=== PATIENT | female | born 1940 | race Caucasian/White ===

== ENCOUNTER 2016-09-24 12:42 | Observation (INO) | payer MEDICARE ==
--- NOTE | ~2016-09-24 | HP ---
History And Physical [address] [place]. [address] NAME: RAVEN MEYER : 44 STATUS : ADM Bam PAT#: [id number] AGE: 76 ADM/REG DATE : 09/24/16 MR#: [id number] REPORT SERV DATE: 09/25/16 DICTATED BY: ASHLEY BEAR DATE: 09/25/16 REPORT STATUS : Draft TRANSCRIBED BY: LIZANDRO DATE: 09/25/16 DATE OF ADMISSION: 09/24/2016 NEUROLOGIST: Jose De Jesus Keith M.D. CHIEF COMPLAINT: Chest pain. HISTORY OF PRESENT ILLNESS: This is a pleasant 76-year-old white female with no cardiac history with cardiac risk factor of hyperlipidemia and age. 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 She presented to the emergency room yesterday for an episode of dyspnea with walking to the bathroom and precordial chest pain. This occurred soon after awakening at 9 o'clock and then walking to the bathroom approximately 0915 hours. The chest pain and dyspnea lasted approximately 40 minutes. This occurred after a sleepless night secondary to loud neighbors. Subsequently, she had one minute of chest pain at approximately 6 o'clock this morning with no associated symptoms. Otherwise, no symptoms of chest pain or any other associated symptoms in several years since last [facility] workup in 2014. She did have associated "coldness feeling to her body and felt slightly lightheaded." This resolved. Of note, the patient is undergoing an evaluation with Dr. Avila for weight loss of an undetermined etiology, and she has a subsequent followup appointment in several weeks. PAST MEDICAL HISTORY: 1. Hyperlipidemia. 2. Parkinson's. 3. Left breast carcinoma in situ. 4. Right hip fracture from fall. 5. Frequent falls. 6. GERD. 7. UTI secondary to Klebsiella. 8. Scoliosis. 9. Arthritis. 10.Herpes in 2008. 11.Depression. 12.Anxiety. 13.Arthritis. 14.Neuropathic pain. 15.Frequent falls. PAST SURGICAL HISTORY: 1. Right hip ORIF in 10/2015. 2. Tonsillectomy, one year old. 3. Tubal ligation. 4. Mole excision on 10/04. 5. Appendectomy. 6. Left fracture of hip with surgery in 10/2015. History And Physical [address] [place]. [address] NAME: RAVEN MEYER : 44 STATUS : ADM Bam PAT#: [id number] AGE: 76 ADM/REG DATE : 09/24/16 MR#: [id number] REPORT SERV DATE: 09/25/16 DICTATED BY: ASHLEY BEAR DATE: 09/25/16 REPORT STATUS : Draft TRANSCRIBED BY: LIZANDRO DATE: 09/25/16 7. Two negative cath/arteriograms approximately 12 years ago. SOCIAL HISTORY: , with caregiver secondary to Parkinson's. She lives with her daughter. She is a retired nurse. She denies any tobacco, alcohol, or illicit drug use. She has no formal exercise program secondary to Parkinson's and requires wheelchair outside of the home and walks slowly around a one-story home with a walker for assistance. FAMILY HISTORY: Noncontributory for CAD. REVIEW OF SYSTEMS: Last stress test on 07/12/2013, this was a vasodilator stress test with no ischemia. LVEF greater than 60%. This was considered to be low-risk stress test. As above per HPI, all other systems reviewed and negative. ALLERGIES: 1. OXYCODONE, REACTION RASH AND HALLUCINATION. 2. CODEINE, OUT OF MIND AND MEMORY LOSS ISSUES. 3. TRIMETHOPRIM, RASH. 4. CIPROFLOXACIN, RASH. MEDICATIONS: Home medication list reviewed and is as follows, 1. Acyclovir 400 mg p.o. twice per day. 2. Aspirin 81 mg p.o. daily. 3. Stalevo 150 mg tab p.o. q.8 hours. 4. Vitamin B12 at 1000 mcg p.o. daily. 5. Vitamin D 6000 units p.o. daily. 6. Colace 100 mg p.o. daily. 7. Cymbalta 30 mg p.o. daily. 8. Gabapentin 800 mg p.o. three times per day. 9. Multivitamins one tablet p.o. daily. 10.Nexium 40 mg p.o. daily. 11.Neupro 8 mg/24-hour patch, apply topically daily. 12.Klonopin 0.5 mg p.o. at bedtime. 13.Terrell 7.5/325 mg one tablet p.o. daily p.r.n. pain. 14.Nuplazid 34 mg p.o. daily. PHYSICAL EXAMINATION: VITAL SIGNS: Oxygen saturation 96% on room air, weight 54.43 kg, temperature 98.1, pulse 75, respiratory rate 18, blood pressure 128/61 and as high as 152/70. GENERAL: Well developed, well nourished. In no apparent distress. HEENT: Head normocephalic. No xanthelasma. Sclera clear, anicteric. Moist mucous membranes without pallor. No lymphadenopathy. No deficits noted. NECK: Trachea midline. Supple. No thyromegaly, JVD, or bruits. RESPIRATORY: Unlabored respirations. Breath sounds clear bilaterally to posterior auscultation. No wheezes, rhonchi or crackles. CARDIOVASCULAR: Regular rate and rhythm. No murmur, rub, or gallop appreciated. No chest wall tenderness to palpation. History And Physical [address] [address] NAME: RAVEN MEYER : 44 STATUS : ADM Bam PAT#: [id number] AGE: 76 ADM/REG DATE : 09/24/16 MR#: [id number] REPORT SERV DATE: 09/25/16 DICTATED BY: ASHLEY BEAR DATE: 09/25/16 REPORT STATUS : Draft TRANSCRIBED BY: LIZANDRO DATE: 09/25/16 ABDOMEN: Soft, nontender, and nondistended. Active bowel sounds auscultated x4 quadrants. No organomegaly and no masses. No aortic bruit. EXTREMITIES: DP/PT and radial pulses 2+ bilaterally. No clubbing, cyanosis, or edema. SKIN: Warm, dry, intact. No rash. Normal turgor. MUSCULOSKELETAL: Moves all extremities in bed without difficulty. NEURO/PSYCH: Alert and oriented x3 with no acute distress. Affect appropriate to current situation. LABORATORY DATA: BMP: Sodium 144, potassium 4, creatinine 0.68, glucose 112, calcium 10.8 (was 10.9 on 09/18/2016), magnesium 2.3. CBC: White blood cell count 4.8, hemoglobin 12.8, hematocrit 38.7, platelets 162. Troponin less than 0.02 x3. Note, laboratory data from primary care provider, parathyroid hormone was checked and was normal at 64.5. TSH was normal at 0.4, free T4 was normal at 1.2. IMAGING: Chest x-ray: Clear lungs with mild diminished lung volumes. Surgical clips noted to the left chest wall that are persistent. There is a normal cardiac silhouette. EKG personally interpreted normal sinus rhythm with no ischemia, poor R-wave progression. Telemetry: Sinus rhythm. ASSESSMENT AND PLAN: 1. Precordial chest pain, three negative troponins. EKG, no acute ischemia. Cardiac risk factors include hyperlipidemia, age of 76. I will order a vasodilator stress test for risk stratification given these risk factors. She is unable to walk on a treadmill given Parkinson's. RN is to discharge the patient to home if the vasodilator stress test is low risk. She is to follow up with primary care provider in one-two weeks. 2. Parkinson disease, I will continue home medications, this is well controlled at this time. 3. Hyperlipidemia, she is a diet managed and PCP is to continue to follow. She is to continue a low-fat diet. 4. Elevated blood pressure. The patient denies hypertension. She said that she has been off blood pressure medications for over five years as she has been normotensive. She is to check her blood pressure daily, record, and bring to primary care provider in one- two weeks. 5. Reported weight loss. This is being followed by primary care provider, who is undergoing a workup at this time. I defer that to Dr. Avila. The patient will be seen down in the stress testing area by rounding grain operations manager for [employer]. ROBERTO/LIZANDRO Ashley Bear NP / [id number] CC: History And Physical [address] [address] NAME: RAVEN MEYER : 44 STATUS : ADM Bam PAT#: [id number] AGE: 76 ADM/REG DATE : 09/24/16 MR#: [id number] REPORT SERV DATE: 09/25/16 DICTATED BY: ASHLEY BEAR DATE: 09/25/16 REPORT STATUS : Draft TRANSCRIBED BY: LIZANDRO DATE: 09/25/16 JOSÉ LUIS Villavicencio M.D. David Rankine, M.D.
[2016-09-24 12:21] LABS: BASOPHILS 0.4 %; BASOPHILS ABSOLUTE 0.02 10/3/uL (0.0-0.16); EOSINOPHILS 0.8 %; EOSINOPHILS ABSOLUTE 0.04 10/3/uL (0.0-0.53); HEMATOCRIT 38.7 % (36.0-48.0); HEMOGLOBIN 12.8 g/dL (12.0-16.0); IMMATURE GRANULOCYTES 0.2 %; IMMATURE GRANULOCYTES ABSOLUTE 0.01 10/3/uL (0.0-0.11); LYMPHOCYTES 25.3 %; LYMPHOCYTES ABSOLUTE 1.21 10/3/uL (0.67-4.30); MANUAL DIFF NO %; MEAN CORPUS HGB CONC 33.1 g/dL (32.0-36.0); MEAN CORPUSCULAR HEMOGLOB 29.1 pg (26.0-34.0); MEAN PLATELET VOLUME 11.3 fL (9.2-13.0); MONOCYTES 7.7 %; MONOCYTES ABSOLUTE 0.37 10/3/uL (0.21-1.20); NEUTROPHILS 65.6 %; NEUTROPHILS ABSOLUTE 3.14 10/3/uL (2.02-8.40); PLATELET COUNT 162 10/3/uL (150-400); RBC DISTRIBUTION WIDTH 13.7 % (12.0-16.0); WHITE BLOOD CELLS 4.8 10/3/uL (4.5-10.5)
[2016-09-24 12:28] LABS: PARTIAL THROMBO TIME 27.1 SEC (22.5-37.2); PROTIME (NOT ORD) 13.3 SEC (12.0-14.5)
[2016-09-24 12:35] LABS: BUN (BLOOD UREA NITROGEN) 8 MG/DL (6-23); CALCIUM, SERUM 10.8 MG/DL (8.5-10.4); CHEST PAIN PROFILE TAT 0 Hrs 18 Mins; CHLORIDE, SERUM 106 MMOL/L (96-112); CO2 (CARBON DIOXIDE) 32 MMOL/L (24-34); CREATININE 0.68 MG/DL (0.55-1.02); GFR AFRICAN AMERICAN 100 ML/MIN (>=60); GFR NON AFRICAN AMERICAN 86 ML/MIN (>=60); SODIUM, SERUM 144 MMOL/L (135-148); TROPONIN I <0.02 NG/ML (<0.05)
[2016-09-24 12:36] LABS: GLUCOSE, SERUM 112 MG/DL (60-99)
[~2016-09-24 12:42] MED LIST: ASAB PO; BUDEPRION XL150 MG PO; CARD120 PO; CARDCD120 PO; COZAAR100 MG PO; CYANO1000T PO; CYMBALTA60 PO; DELSYM30 MG/5 ML PO; DSS PO; FLONASE NAS; HALF81 PO; IBU400 PO; LORT7 PO; LORTAB 5 PO; MOTRIN IB200 MG PO; MULTIVIT/MIN PO; NEUPRO 2MG2 MG/24 HR TOP; NEUPRO 8 MG/24 HR TD; NEUPRO1 EACH TOP; NEUR600 PO; NEUR800 PO; NEXIUM20 M1 PO; NEXIUM40 PO; NORCO1 TA2 PO; PRAVACHOL40 MG PO; REQUIP3 PO; SIN10 PO; SIN25 PO; STALEVO PO; VITAMIN B PO; VITAMIN C100 MG PO; VITAMIN D1000 UNI1 PO; WELLXL150 PO; ZOCOR40 PO; ZOVIRAX400 MG PO; ZYBAN PO
[2016-09-24] MEDS ORDERED: ZOVIRAX400 MG PO (14:15)
[2016-09-24] MEDS ORDERED: NEUR800 PO (14:15)
[2016-09-24] MEDS ORDERED: NEXIUM40 PO (14:15)
[2016-09-24] MEDS ORDERED: STALEVO150 PO (14:16)
[2016-09-24] MEDS ORDERED: CYMBALTA30 PO (14:16)
[2016-09-24] MEDS ORDERED: VITAMIN D2000 UNIT PO (14:17)
[2016-09-24] MEDS ORDERED: DSS PO (14:17)
[2016-09-24] MEDS ORDERED: NORCO1 TA2 PO (14:17)
[2016-09-24] MEDS ORDERED: HALF81 PO (14:17)
[2016-09-24] MEDS ORDERED: CYANO1000T PO (14:18)
[2016-09-24] MEDS ORDERED: THERGRANM PO (14:18)
[2016-09-24] MEDS ORDERED: NEUPRO1 EACH TOP (14:19)
[2016-09-24] MEDS ORDERED: NUPLAZID PO (14:19)
[2016-09-24] MEDS ORDERED: KLONO5 PO (14:19)
== END 2016-09-25 15:38 | disposition home or self-care (01) ==
LOC: ER 12:42 → CDU1 14:42 → CDU2 15:04
PROVIDERS: Nurse Practitioner
DX: R07.2 Precordial pain (principal); G20 Parkinson's disease; E78.5 Hyperlipidemia, unspecified; K21.9 Gastro-esophageal reflux disease without esophagitis; M19.90 Unspecified osteoarthritis, unspecified site; F32.9 Major depressive disorder, single episode, unspecified; F41.9 Anxiety disorder, unspecified; Z98.890 Other specified postprocedural states; Z98.51 Tubal ligation status; Z90.49 Acquired absence of other specified parts of digestive tract; Z88.5 Allergy status to narcotic agent; Z88.8 Allergy status to other drugs, medicaments and biological substances; Z79.82 Long term (current) use of aspirin; Z79.899 Other long term (current) drug therapy; R03.0 Elevated blood-pressure reading, without diagnosis of hypertension
CPT/HCPCS: 71010; 78452; 80048; 83735; 84484; 85025; 85610; 85730; 93005; 93017; 99285; A9270-GY; A9502; G0378; J2785